=== PATIENT | female | born 1960 ===

== ENCOUNTER 2024-06-26 07:22 | Day surgery (SDC) | payer OTHER ==
[2024-06-18 11:05] LABS: PH,URINE 5.5 (5.0-8.0); URINE APPEARANCE Clear; URINE BILIRRUBIN Negative (NEGATIVE); URINE BLOOD Negative; URINE COLOR Yellow; URINE KETONE Negative (NEGATIVE); URINE LEUKOCYTE Negative; URINE NITRATE Negative; URINE PROTEIN Negative (NEGATIVE); URINE UROBILINOGEN 0.2 E.U./dl
[2024-06-18 11:14] LABS: HEMATOCRIT 41.2 % (36.0-45.00); HEMOGLOBIN 14.1 g/dL (12.0-15.00); MEAN CELL VOLUME 78.7 fL (80.00-100.00); MEAN CORPUSCULAR HEMOGLOBIN 26.9 pg (27.00-32.0); MEAN CORPUSCULAR HGB CONC 34.2 g/dl (32.0-36.0); PLATELET COUNT 267 K/uL (150-450); RED BLOOD COUNT 5.24 M/uL (4.00-6.00); RED CELL DISTRIBUTION WIDTH 13.5 % (11.5-14.5)
[2024-06-18 11:15] LABS: URINE BACTERIA 166.3 uL (0.0-1933); URINE EPITHELIAL CELLS 5.3 uL (0.0-38.8); URINE RBC 2.5 uL (0.0-20.8); URINE WBC 3.1 uL (0.0-23.2)
[2024-06-18 11:20] LABS: URINE GLUCOSE 500 MG/DL (NEGATIVE)
[2024-06-18 11:34] LABS: INR 1.02; PARTIAL THROMBOPLASTIN TIME 27.2 SECONDS (22.0-34.0); PROTHROMBIN TIME 11.1 SECONDS (9.0-11.5)
[2024-06-18 11:53] LABS: ALBUMIN 3.7 gm/dL (3.4-5.0); BILIRUBIN TOTAL 0.69 mg/dL (0.3-1.2); CREATININE SERUM 0.73 mg/dL (0.55-1.02); GFR 80.26; GLOBULINA 4.1 G/DL (2.4-3.5); POTASSIUM 3.82 mEq/L (3.5-5.1); TOTAL PROTEIN 7.8 gm/dL (6.4-8.2); TSH 1.18 uIU/mL (0.358-3.74)
[2024-06-18 12:22] VITALS: BP 122/84
[~2024-06-26] VITALS: Ht 154.9 cm; Wt 74.8 kg
[~2024-06-26 07:22] MED LIST: ACTOS30 MG PO; COZAAR25 MG PO; CRESTOR40 MG; ECOTRIN81 MG; FEOSOL325 MG PO; GLIMEPIRIDE4 MG; NEURONTIN300 MG; TOPROL XL50 M1 PO; VITAMIN B-121000 MC4 PO
[2024-06-26] MEDS ORDERED: CEFOXITIN SODIUM 2,000 MG VIAL IV ONE (12:45)
[2024-06-26] MEDS ORDERED: MORPHINE SULFATE 4 MG/ML VIAL IV PRN (13:30)
[2024-06-26] MEDS ORDERED: PROMETHAZINE HCL 50 MG/ML AMPUL IM ONE (13:30)
[2024-06-26] MEDS ORDERED: NAPR500T14 PO (13:34)
[2024-06-26] MEDS ORDERED: MONDOXYNE NL100 MG PO (13:34)
== END 2024-06-26 19:10 | disposition home or self-care (01) ==
LOC: CIR.AMB 07:22
PROVIDERS: ATTEND Obstetrics & Gynecology
DX: D25.0 Submucous leiomyoma of uterus (principal); N84.0 Polyp of corpus uteri; N95.0 Postmenopausal bleeding; I10 Essential (primary) hypertension; E78.5 Hyperlipidemia, unspecified